=== PATIENT | female | born 1975 | race Caucasian/White ===

== ENCOUNTER 2021-09-03 07:57 | Observation (INO) | payer MEDICAID ==
[~2021-09-03] VITALS: Ht 160 cm; Wt 110.6 kg
[2021-09-03] VITALS (11 sets, daily range): BP systolic 137–177; BP diastolic 77–113; PULSE 102–124; TEMP 97.6–98.8
[2021-09-03] MEDS ORDERED: IMITREX 25MG TA25 MG PO (09:04)
[2021-09-03] MEDS ORDERED: PROTONIX 40MG T40 MG PO (09:04)
[2021-09-03 09:56] LABS: CALCIUM 9.1 mg/dL (8.4-10.2); CREATININE, serum 0.72 mg/dL (0.57-1.11)
--- NOTE | 2021-09-03 14:46 | NUR ---
PT ARRIVED TO ROOM 343 AT 1235. VSS. PT RATES PAIN MILD, DENIES NAUSEA. NECK INCISION WELL APPROXIMATED WITH NO DRAINAGE. PT MALAY SPEAKING, DAUGHTER WILL BE STAYING TO HELP TRANSLATE.
--- NOTE | 2021-09-03 21:50 | NUR ---
Patient assessed around 193. Patient is Emirati speaking only. Daughter in room assisting with translations. Complaining of pain to neck at that time. Given PRN Tramadol. Patient continued to have pain. Call placed to Dr. Nair, new order for Motrin received, and given per orders. Also received order for PRN Labetolol, but not needed at this time. New order for cough drops/lozenges for sore throat. Patient given cough drops and Motrin per orders. Patient requesting medication for migraine. Med rec shows patient was on Imetrex, but Dr. Nair put medication on hold. Attempted to call Dr. Nair with no answer, will try again. Patient complaining that INT to right hand is bothering her. Site flushes well. Attempted to restart to INT to right forearm, but unable to. Requested Track Oiler start new INT for patient comfort. Surgical site to neck is open to air. No drainage or redness noted at this time. Patient repots occasional cough with phlegm. Encouraged to take deep breaths. LS CTA. Denies SOB and dyspnea. HR-tachycardia. BSAx4. Patient in bed with call light within reach. Encouraged to call with any questions, needs, or concerns.
--- NOTE | 2021-09-03 22:12 | NUR ---
Dr. Nair called this nurse back, new order for Imitrex. Given per orders. Waistline Joiner Overlock in room at this time attempting to start new INT as patient requested.
[2021-09-04] VITALS (13 sets, daily range): BP systolic 123–155; BP diastolic 68–102; PULSE 77–108; TEMP 97.8–98.8
--- NOTE | 2021-09-04 05:37 | NUR ---
Patient denies having pain and discomfort at this time. Daughter remains at bedside to assist with translating. INT to right forearm. Voices no questions, needs, or concerns at this time. In bed with call light within reach.
[2021-09-04 06:56] LABS: CREATININE, serum 0.65 mg/dL (0.57-1.11); POTASSIUM 4.3 mmol/L (3.5-4.5)
--- NOTE | 2021-09-04 07:24 | NUR ---
Patient sleeping in bed at this time. Speaks Danish only, daughter at bedside to assist in translation. No complaints, denies pain. INT intact in right hand, no signs of infection present. Surgical site well approximated, open to air, no redness, swelling, or drainage. -Ricky Simon [facility] ADN Student
--- NOTE | 2021-09-04 09:20 | NUR ---
MIKAELA met with the patient and her daughter, Jennifer (ph#[phone]), to discuss discharge plan. The patient is congolese speaking and her daughter translated. The patient lives in [place] with Jennifer, her (Santy, ph#[phone]), and her three other children. Jennifer states that the patient is independent with ADLs and does not have any DME. The patient's PCP is Dr. Giulia Farris and she receives her medications from [facility]. She reports no difficulties affording the patient's meds. The patient does not have a DPOA-HC. Jennifer states that the plan is for the patient to return home with her family upon discharge. No additional needs at this time. *Discharge plan: home with family*
--- NOTE | 2021-09-04 10:46 | NUR ---
Initial visit; Neighborhood Coordinator introduced herself to patient and family and offered God's blessings and to keep patient in her prayers. Patient's nodded yes, patient appeared to understand what Neighborhood Coordinator was saying, though she was just out of procedure.
--- NOTE | 2021-09-04 14:00 | NUR ---
Received report from THAI Nuñez. Pt resting in bed, daughter and at bedside. Pt aware that she is going to be going to surgery later this afternoon. Pt stating that she is having a little pain, but it is okay. Incision is well approximated, no drainage or redness noted. SCDs on, lung sounds clear and bowel sounds active, heart rate regular. Pt denies any needs, call light within reach
--- NOTE | 2021-09-04 16:20 | NUR ---
Pt off floor for surgery
--- NOTE | 2021-09-04 16:27 | NUR ---
Made OR aware of pts BP
--- NOTE | 2021-09-04 19:00 | NUR ---
To room 343 via bed from PACU. Post op vitals initiated. Daughter at bedside for translation. Incision to neck-edges well approximated-no drainage noted. Denies pain/nausea/shortness of breath. VS currenlty stable. LR@75ml/hr to right forearm IV-infusing without difficulty. SCDs bilat. Tolerating ice chips. Denies needs. Call light in reach. Will monitor.
--- NOTE | 2021-09-04 21:10 | NUR ---
Up to bathroom at this time. Voided without difficulty. Denies pain/nausea/shortness of breath. Call light in reach. Will monitor.
[2021-09-05 00:32] VITALS: BP 122/83; PULSE 74; TEMP 98.3
[2021-09-05 04:57] VITALS: BP 109/77; PULSE 73; TEMP 98.2
[2021-09-05 07:42] VITALS: BP 129/81; PULSE 65; TEMP 98.2
--- NOTE | 2021-09-05 10:54 | NUR ---
Pt requesting to take a shower. Educated that she cannot get her incision wet, pt verbalized understanding with daughter translating. IV wrapped to keep dry and pt given all showering supplies. Pts daughter and continue to be at bedside. Pt still having complaints that her throat is sore. She was able to tolerate more full liquid consistency type foods. She did eat some oatmeal and yogurt. No other needs at this time, call light within reach
--- NOTE | 2021-09-05 11:36 | NUR ---
Pt doing well, she is sitting up in the chair at this time. Pt has showered, waist down, reports that she feels good. Pt stated not having much incision pain, just reports sore throat. She does have ice pack she was keeping on her neck. She is also using lozenges and ice chips to sooth pain. Dr Nair in room discussing discharge at this time. Daughter is in the room to translate
[2021-09-05] MEDS ORDERED: SYNTHROID0.175 MG PO (11:51)
[2021-09-05 12:07] VITALS: BP 138/102; PULSE 75; TEMP 98.1
--- NOTE | 2021-09-05 12:45 | NUR ---
Reviewed discharge instructions with pt. Daughter and at bedside. All questions answered. INT removed from right forearm and pt escorted out via wheelchair
== END 2021-09-05 14:00 | disposition home or self-care (01) ==
LOC: SDCO 07:57 → SURG 07:57 → SDCO 10:00 → SURG 12:44 → SDCO 09-04 13:28 → SURG 09-04 13:29
PROVIDERS: ADMIT Surgery
DX: C73 Malignant neoplasm of thyroid gland (principal); I10 Essential (primary) hypertension
CPT/HCPCS: OP; G0378; J0330; J0690; J1100; J1170; J2370; J2405; J2704; J3010; J7120